=== PATIENT | female | born 1970 | race Caucasian/White ===

== ENCOUNTER → 2020-02-28 14:58 | Outpatient (BNVA) | payer SELFPAY | PROVIDERS: Visit Provider Nurse Practitioner Family | DX: N30.90 Cystitis, unspecified without hematuria (principal) | CPT/HCPCS: 81001 ==

== ENCOUNTER → 2021-02-26 14:50 | Outpatient (BNVA) | payer SELFPAY | PROVIDERS: PCP Nurse Practitioner Family; Visit Provider Urology | DX: N30.90 Cystitis, unspecified without hematuria (principal); I10 Essential (primary) hypertension | CPT/HCPCS: 81003 ==

== ENCOUNTER → 2023-02-24 14:20 | Outpatient (BNVA) | payer SELFPAY | PROVIDERS: PCP Nurse Practitioner Family; Visit Provider Urology | DX: N30.90 Cystitis, unspecified without hematuria (principal) | CPT/HCPCS: 81003 ==